=== PATIENT | male | born 1995 | race Caucasian/White ===

== ENCOUNTER 2020-02-19 10:22 | Outpatient (CLI) | payer OTHER, SELFPAY ==
--- NOTE | ~2020-02-19 | CT_ITS ---
EXAMINATION: CT sinus wo con DATE: 02/19/2020 10:46 INDICATION: Chronic sinusitis TECHNIQUE: Computed tomography (CT) of the paranasal sinuses was performed without intravenous contra st. The dose-length product was 323.68 mGy-cm. Automated exposure control and iterative reconstructio n technique were employed. COMPARISON: No prior studies for comparison. FINDINGS: There is polypoid mucosal thickening of the maxillary sinuses. Mastoids are pneumatized. No depressed skull fractures. Mild mucosal thickening of the ethmoid sinuses. Rightward nasal septal de viation. Ostiomeatal units are patent. There are small bilateral triston bullosa. IMPRESSION: 1. Mild sinus disease primarily involving the maxillary sinuses. Reviewed, dictated and finalized at location A.
== END 2020-02-19 10:23 | disposition home or self-care (01) ==
PROVIDERS: Visit Provider Allergy & Immunology
DX: J32.0 Chronic maxillary sinusitis (principal)
CPT/HCPCS: 70486